=== PATIENT | female | born 1970 | race Caucasian/White ===

== ENCOUNTER 2022-07-12 09:16 | Emergency (ER) | payer MEDICAID ==
[~2022-07-12] VITALS: Ht 170.2 cm; Wt 70.0 kg
[2022-07-12] MEDS ORDERED: SODIUM CHLORIDE 0.9% 1,000 ML IV ONE (09:45)
[2022-07-12] MEDS ORDERED: ONDANSETRON HCL 4MG/2ML INJ IV ONE (09:45)
[2022-07-12 09:59] LABS: BASOPHILS % 0.8 % (0.0-2.0); EOSINOPHILS % 13.5 % (0.0-5.0); HEMATOCRIT. 41.9 % (36.0-48.0); HEMOGLOBIN. 14.3 g/dL (12.0-16.0); LYMPHOCYTES % 32.6 % (20.0-50.0); MEAN CORPUSCULAR HEMOGLOBIN 28.8 pg (28.0-32.0); MEAN CORPUSCULAR VOLUME 84.4 fL (81.0-99.0); MEAN PLATELET VOLUME 8.1 fl (7.4-10.4); MONOCYTES % 7.4 % (2.0-8.0); NEUTROPHILS % 45.7 % (40.0-76.0); PLATELET 244 x1000/uL (130-400); RED BLOOD CELL COUNT 4.97 mill/uL (4.2-5.4); RED CELL DISTRIBUTION WIDTH 13.7 % (11.6-14.6)
[2022-07-12 10:04] LABS: CHLORIDE 104 mEq/L (98-107)
[2022-07-12] MEDS ORDERED: MECLIZINE 25MG TABLET PO NR (11:00)
[2022-07-12] MEDS ORDERED: MECLIZINE 12.5MG TABLET PO NR (11:30)
[2022-07-12 13:06] LABS: CLARITY URINE CLEAR (CLEAR); COLOR URINE YELLOW (YELLOW); KETONES URINE NEGATIVE (NEGATIVE); LEUKOCYTE ESTERASE URINE NEGATIVE (NEGATIVE); NITRITE URINE NEGATIVE (NEGATIVE); OCCULT BLOOD URINE NEGATIVE (NEGATIVE); PROTEIN URINE NEGATIVE (NEGATIVE); SPECIFIC GRAVITY URINE 1.005 (1.005-1.030); UROBILINOGEN URINE 0.2 E.U./dL (0.2-1.0)
[2022-07-12 14:30] VITALS: BP 162/97
== END 2022-07-12 14:40 | disposition home or self-care (01) ==
LOC: EDSEX 09:16 → ER 09:33
DX: R42 Dizziness and giddiness (principal); H53.8 Other visual disturbances; I10 Essential (primary) hypertension
CPT/HCPCS: 36415; 70450; 71045; 80053; 81003; 83880; 84484; 85025; 93005; 96361; 96374; 99285; J2405; J7030; J8597; Z7610

== ENCOUNTER 2023-09-12 22:00 | Emergency (ER) | payer MEDICAID ==
[~2023-09-12] VITALS: Ht 162.6 cm; Wt 65.0 kg
[2023-09-12 22:09] VITALS: O2SAT 98
[2023-09-12 22:44] VITALS: TEMP 98.6
[2023-09-12 23:46] LABS: BASOPHILS % 0.8 % (0.0-2.0); EOSINOPHILS % 12.9 % (0.0-5.0); HEMATOCRIT. 41.5 % (36.0-48.0); HEMOGLOBIN. 14.1 g/dL (12.0-16.0); LYMPHOCYTES % 32.2 % (20.0-50.0); MEAN CORPUSCULAR HEMOGLOBIN 29.2 pg (28.0-32.0); MEAN CORPUSCULAR VOLUME 85.9 fL (81.0-99.0); MEAN PLATELET VOLUME 8.3 fl (7.4-10.4); MONOCYTES % 7.8 % (2.0-8.0); NEUTROPHILS % 46.3 % (40.0-76.0); PLATELET 251 x1000/uL (130-400); RED BLOOD CELL COUNT 4.84 mill/uL (4.2-5.4); RED CELL DISTRIBUTION WIDTH 13.8 % (11.6-14.6); WHITE BLOOD COUNT 5.9 x1000/uL (4.5-11.0)
[2023-09-12 23:55] LABS: CHLORIDE 106 mEq/L (98-107); SODIUM 140 mEq/L (136-145)
[2023-09-12 23:56] LABS: CARBON DIOXIDE 29 mEq/L (21-32)
[2023-09-12 23:57] LABS: CALCIUM 9.6 mg/dL (8.7-10.4)
[2023-09-13 00:01] LABS: CREATININE 0.7 mg/dL (0.6-1.0)
[2023-09-13 00:02] LABS: GLUCOSE 112 mg/dL (70-105); UREA NITROGEN BLOOD 17 mg/dL (9-23)
[2023-09-13 00:17] LABS: TROPONIN I HIGH SENSITIVITY < 4 ng/L (3.0-34)
[2023-09-13 05:29] VITALS: BP 138/81; PULSE 59; RESP 14
== END 2023-09-13 06:11 | disposition home or self-care (01) ==
LOC: ER 22:00
DX: R07.89 Other chest pain (principal); R42 Dizziness and giddiness; I10 Essential (primary) hypertension
CPT/HCPCS: 36415; 71045; 80048; 83880; 84484; 85025; 93005; 99285